=== PATIENT | female | born 1985 | race African-American/Black ===

== ENCOUNTER 2016-10-25 23:22 | Emergency (ER) | payer MEDICAID ==
[2016-10-25 23:42] VITALS: TEMP 98.3
[2016-10-25 23:46] VITALS: BMI 55.3
[2016-10-25] MEDS ORDERED: LABETALOL 20 MG/4 ML SYRINGE IV STA (23:51)
--- NOTE | 2016-10-25 23:53 | EDPRACDOC ---
- General Information Chief Complaint: Dyspnea/Resp distress Stated Complaint: SHOB Time Seen by Provider: 10/25/16 23:46 Information Source: Patient Mode Of Arrival: Car Home Medications: Home Medications Cyclobenzaprine HCl [Flexeril] 10 mg PO TID PRN #20 tablet 07/31/16 Ibuprofen Tablet [Motrin] 800 mg PO TID PRN #30 tab 07/31/16 Azithromycin 250 mg PO DAILY #4 tablet 10/26/16 Benzonatate [Tessalon Perle] 100 mg PO TID PRN #20 capsule 10/26/16 Guaifenesin [Robitussin] 10 ml PO TID PRN #7 days 10/26/16 Allergies/Adverse Reactions: Allergies Allergy/AdvReac Type Severity Reaction Status Date / Time No Known Allergies Allergy Verified 07/31/16 16:21 - History of Present Illness HPI: PT PRESENTS WITH PROGRESSIVE DYSPNEA OVER THE LAST FEW DAYS. BEGAN A HEAD COLD WITH NASAL CONGESTION AND FACIAL PRESSURE. PT HAS A HISTORY OF HEART FAILURE BUT HAS NOT TAKEN HER LASIX IN THE LAST FEW DAYS BECAUSE SHE RECENTLY STARTED TAKING VALSARTAN. Shortness of Breath: Moderate Relevant History: Reports: Asthma, Heart Failure (CHF) Cough: Reports: Non-productive Rhinorrhea: Reports: Clear SOB Worsens with: Reports: Exertion SOB Improves with: Reports: Rest Associated Signs and symptoms: Reports: Cough, Nasal Symptoms. Denies: Fever, Vomiting, Diarrhea - Treatment Prior to ED Arrival Reported Medications/Treatment ENRICHMENT SPECIALIST Treated With Medication ENRICHMENT SPECIALIST YES Medications ENRICHMENT SPECIALIST (Medication/ Mucinex @ 1800-unknown dose Dose/Time) ED Past Medical History - History Reviewed Yes Nurses notes reviewed and agree except as marked - Patient Medical History Cardiac History: Reports: Hypertension, Congestive Heart Failure Respiratory History: Reports: Asthma Psychological History: Denies: Depression - Social Medical History Smoking Status: Never smoker Lives In: Home EDM Review of Systems - Review of Systems ROS Negative Except as Marked: Yes All systems reviewed and were negative except as marked Constitutional: Fatigue, Weakness. negative: Fever Nose: Congestion, Discharge, Tender (MAXILLARY SINUSES) Respiratory: Cough, Shortness of Breath, Wheezing Cardiovascular: Edema. negative: Chest Pain, Syncope Gastrointestinal: negative: Pain, Vomiting - Physical Exam Constitutional: Alert Oriented to: Time, Person, Place Last recorded Vital Signs: Last Vital Signs Temp 98.3 F 10/25/16 23:41 Pulse 131 H 10/25/16 23:41 Resp 24 10/25/16 23:41 BP 172/105 H 10/25/16 23:41 Pulse Ox 93 10/25/16 23:41 Oxygen Pulse Oxygen Saturation 93 O2 Device Oxygen Flow Rate Fraction of Inspired Oxygen ( FIO2) - HEENT Head: negative: Deformity, Laceration Eye Exam: negative: Conjunctival Injection, Pale Conjunctiva Oropharynx: negative: Membranes Dry Nose: Congestion, Discharge Neck: negative: Limited ROM - Respiratory/Cardiovascular Respiratory: Diminished, Tachypnea. negative: Wheezes Cardiovascular: Tachycardia. negative: Bradycardia, Irregular - GI Auscultation: Normal Palpation: Normal Tenderness: Non tender - Musculoskeletal Extremities: Pedal Edema (1+ BILATERAL), Pedal Pulse (PALPABLE), Radial Pulse ( PALPABLE). negative: Calf Tenderness - Integumentary Skin: Warm, Dry. negative: Rash - Neurologic Memory Impaired: Normal Motor Function: Normal Mood Description: Anxious, Appropriate Thought: Coherent Perception: Normal ED SOB MDM - Results Result Diagrams: 10/26/16 00:14 10/26/16 00:14 - EKG EKG #1 EKG Time: 00:10 -: Yes EKG interpreted by me Rate: bpm: 118 Rhythm: NSR, PVCs Block: None Hypertrophy: LVH ST: Nonsp Decision Time to Discharge: 01:37 - Departure Yes I personally saw and evaluated the patient. Disposition: Home Condition: Stable Final Diagnosis: Sinusitis Qualifiers: Sinusitis location: frontal Chronicity: acute Recurrence: non-recurrent Qualified Code(s): J01.10 - Acute frontal sinusitis, unspecified Heart failure Qualifiers: Heart failure type: unspecified heart failure type Heart failure chronicity: chronic Qualified Code(s): I50.9 - Heart failure, unspecified Instructions: *Heart Failure (Activity, Diet, Worsening Symptoms, Weight Monitoring)(ED), Sinusitis (ED) Education/Counseling Given To: Patient Education/Counseling Given Regarding: Diagnosis, Treatment, Prognosis, Follow Up Referrals: Mago Gayle PA [Primary Care Provider] - Call for Appointment Prescriptions: Azithromycin 250 mg PO DAILY #4 tablet Benzonatate [Tessalon Perle] 100 mg PO TID PRN #20 capsule PRN Reason: Cough Guaifenesin [Robitussin] 10 ml PO TID PRN #7 days PRN Reason: Cough Additional Instructions: PLEASE RESUME TAKING YOUR LASIX.
[2016-10-26 00:38] LABS: AUTOMATED BASOPHIL 0.3 % (0-2); AUTOMATED LYMPH 35.1 % (17-44); AUTOMATED MONOCYTE 6.8 % (3-10); AUTOMATED NEUTROPHIL 56.8 % (45-76); MPV 9.1 fL (7.4-10.4)
[2016-10-26 00:42] LABS: BLOOD UREA NITROGEN 12 MG/DL (7-17); CALCIUM 9.6 MG/DL (8.4-10.2); CALCULATED OSMOLALITY 275 MOs/Kg (270-290); CHLORIDE 103 mEq/L (98-107); CPK TOTAL WITH POSSIBLE MB 74 IU/L (30-134); GLUCOSE 97 MG/DL (70-99); SODIUM LEVEL 143 mEq/L (137-146); TOTAL PROTEIN 8.2 G/DL (6.3-8.2)
--- NOTE | 2016-10-26 00:42 | DIRPT ---
CLINICAL DATA: Acute onset of chest congestion and dyspnea. Initial encounter. EXAM: CHEST 2 VIEW COMPARISON: None. FINDINGS: The lungs are well-aerated. Vascular congestion is noted. Mild bibasilar opacities may reflect mild atelectasis or possibly minimal interstitial edema. There is no evidence of pleural effusion or pneumothorax. The heart is mildly enlarged. No acute osseous abnormalities are seen. IMPRESSION: Vascular congestion and mild cardiomegaly. Mild bibasilar opacities may reflect mild atelectasis or possibly minimal interstitial edema. Electronically Signed By: Pablo Modi M.D. On: 10/26/2016 00:39
[2016-10-26 00:44] LABS: PARTIAL THROMB. TIME 26.5 SEC (22-35)
[2016-10-26] MEDS ORDERED: BENZONATATE 100 MG PERLES PO ONE (01:36)
[2016-10-26] MEDS ORDERED: AZITHROMYCIN 250 MG TAB PO ONE (01:36)
[2016-10-26] MEDS ORDERED: GUAIFENESIN 200 MG/10 ML UDC PO ONE (01:36)
[2016-10-26 02:00] VITALS: BP 121/69; PULSE 92
== END 2016-10-26 02:02 | disposition home or self-care (01) ==
LOC: ED 23:22
DX: J01.10 Acute frontal sinusitis, unspecified (principal); I50.9 Heart failure, unspecified
CPT/HCPCS: 36415; 71020; 80053; 82550; 83605; 83880; 84484; 85025; 85610; 85730; 87040; 87804; 93005; 96374; 99284; J3490